=== PATIENT | male | born 1965 | race Two or more races ===

== ENCOUNTER → 2024-09-19 | Outpatient (CLI) | payer MEDICAID ==
[~2024-09-19] VITALS: Ht 157.5 cm; Wt 77.1 kg
[2024-09-19] MEDS: REGADENOSON 0.4 MG/5 ML SYRG IV ONE ×2 (10:35→10:37)
== END | disposition home or self-care (01) ==
LOC: XYW 09:33
PROVIDERS: ATTEND Internal Medicine
DX: I10 Essential (primary) hypertension (principal); R07.9 Chest pain, unspecified
CPT/HCPCS: 93017; J2785